=== PATIENT | male | born 1935 | race Hispanic/Latino ===

== ENCOUNTER 2020-07-07 09:12 | Inpatient (IN) | payer OTHER, MEDICARE ==
[~2020-07-07] VITALS: Ht 172.7 cm; Wt 77.2 kg
[2020-07-07] MEDS: 0.9%NACL 1000ML 1,000 ML IV SCH ×2 (02:55→13:04)
[~2020-07-07 09:12] MED LIST: FINA5TAB41 PO; MECL-226 PO; QUIN1TAB16 PO; SIMV-46 PO
[2020-07-07 09:37] LABS: BASOPHILS % (AUTO) 0.1 % (0.0-5.0); EOSINOPHILS % (AUTO) 0.7 % (0.0-8.0); HEMATOCRIT 39.3 % (42-54); LYMPHOCYTES % (AUTO) 4.2 % (21.0-51.0); MEAN CORPUSCULAR HEMOGLOBIN 30.6 pg (27.0-33.0); MEAN CORPUSCULAR HGB CONC 34.1 g/dL (32.0-36.0); MEAN CORPUSCULAR VOLUME 89.7 fL (79-99); MONOCYTES % (AUTO) 4.9 % (3.0-13.0); NEUTROPHILS % (AUTO) 89.2 % (40.0-77.0); PLATELET COUNT (AUTO) 161 K/uL (130-400); RED BLOOD CELL COUNT(AUTO) 4.38 MIL/uL (4.50-6.20); RED CELL DISTRIBUTION WIDTH 12.5 % (11.0-15.5); WHITE BLOOD COUNT (AUTO) 9.7 K/uL (4.8-10.8)
[2020-07-07] MEDS ORDERED: ONDANSETRON 4MG INJ ONE (09:37)
[2020-07-07] MEDS ORDERED: FAMOTIDINE 20MG VIAL IV ONE (09:38)
[2020-07-07] MEDS ORDERED: 0.9%NACL 1000ML 1,000 ML IV ONE ×2 (09:38→11:18)
[2020-07-07 09:56] LABS: BILIRUBIN,TOTAL 0.8 mg/dL (0.2-1.0); POTASSIUM 4.8 mmol/L (3.5-5.1); TOTAL PROTEIN, SERUM 7.5 g/dL (6.0-8.3)
[2020-07-07 10:07] LABS: B-TYPE NATRIURETIC PEPTIDE 13 pg/mL (0-100)
[2020-07-07] MEDS ORDERED: KCL 20 MEQ ERTAB PO PRN (10:45)
[2020-07-07] MEDS ORDERED: LIDOCAINE HCL-MPF 1% 2ML VIAL IV PRN (10:45)
[2020-07-07] MEDS ORDERED: DEXTROSE 50%-WATER 50 ML DISP.SYRIN IV PRN (10:45)
[2020-07-07] MEDS: PANTOPRAZOLE 40 MG TAB DR PO SCH (10:45)
[2020-07-07] MEDS ORDERED: POTASSIUM CHLORIDE 20MEQ/100ML 100 ML IV PRN (10:45)
[2020-07-07] MEDS ORDERED: POTASSIUM CHLORIDE 10% ELIXIR 20 MEQ/15 ML UDCUP PO PRN (10:45)
[2020-07-07] MEDS ORDERED: MAGNESIUM 2GM PREMIX 50ML 50 ML IV PRN (10:45)
[2020-07-07] MEDS: ENOXAPARIN SODIUM 40 MG/0.4 ML SYRINGE SQ SCH (10:45)
[2020-07-07] MEDS: DEXAMETHASONE SOD PHOSPHATE 4 MG/ML 1ML VIAL IVP SCH (10:45)
[2020-07-07] MEDS ORDERED: GLUCAGON 1MG KIT 1 MG ML IM PRN (10:45)
[2020-07-07] MEDS ORDERED: DEXAMETHASONE SOD PHOSPHATE 10MG/ML 1ML VIAL ONE (11:15)
[2020-07-07] MEDS ORDERED: ENOXAPARIN SODIUM 40 MG/0.4 ML SYRINGE SQ ONE (11:16)
[2020-07-07] MEDS ORDERED: PANTOPRAZOLE 40 MG/VIAL ONE (11:16)
[2020-07-07] MEDS: INSULIN HUMULIN R 100 UNIT/ML 3ML SQ SCH ×3 (11:30→20:22)
[2020-07-07] MEDS ORDERED: ONDANSETRON 4MG INJ IVP PRN (12:15)
[2020-07-07] MEDS ORDERED: ACETAMINOPHEN 325 MG TAB PO PRN (12:15)
[2020-07-07] MEDS ORDERED: FAMO40TA7 PO (13:36)
[2020-07-07] MEDS ORDERED: SIMV-46 PO (13:36)
[2020-07-07] MEDS ORDERED: DOXY100T2 PO (13:36)
[2020-07-07] MEDS ORDERED: LISI20TA24 PO (13:36)
[2020-07-07] MEDS ORDERED: FINA5TAB41 PO (13:36)
[2020-07-07 16:39] VITALS: BP 123/65
[2020-07-07 20:02] VITALS: BP 133/53
[2020-07-07 23:52] VITALS: BP 128/66
[2020-07-08 04:07] LABS: HEMATOCRIT 34.6 % (42-54); MEAN CORPUSCULAR HEMOGLOBIN 29.9 pg (27.0-33.0); MEAN CORPUSCULAR HGB CONC 33.2 g/dL (32.0-36.0); MEAN CORPUSCULAR VOLUME 90.1 fL (79-99); RED BLOOD CELL COUNT(AUTO) 3.84 MIL/uL (4.50-6.20); RED CELL DISTRIBUTION WIDTH 12.4 % (11.0-15.5); WHITE BLOOD COUNT (AUTO) 7.7 K/uL (4.8-10.8)
[2020-07-08 04:18] VITALS: BP 125/61
[2020-07-08 04:19] LABS: MAGNESIUM 2.3 mg/dL (1.80-2.40); POTASSIUM 5.1 mmol/L (3.5-5.1)
[2020-07-08] MEDS: INSULIN HUMULIN R 100 UNIT/ML 3ML SQ SCH ×4 (06:38→22:05)
[2020-07-08 08:29] VITALS: BP 167/75
[2020-07-08] MEDS: ENOXAPARIN SODIUM 40 MG/0.4 ML SYRINGE SQ SCH (08:54)
[2020-07-08] MEDS: PANTOPRAZOLE 40 MG TAB DR PO SCH (08:55)
[2020-07-08] MEDS: DEXAMETHASONE SOD PHOSPHATE 4 MG/ML 1ML VIAL IVP SCH (08:55)
[2020-07-08] MEDS: 0.9%NACL 1000ML 1,000 ML IV SCH ×4 (12:51→21:45)
[2020-07-08 13:10] VITALS: BP 136/67
[2020-07-08 16:15] VITALS: BP 113/65
[2020-07-08 19:00] VITALS: BP 130/63
[2020-07-08] MEDS: LISINOPRIL 20 MG TABLET PO SCH (21:48)
[2020-07-09] VITALS (7 sets, daily range): BP systolic 112–168; BP diastolic 59–69
[2020-07-09 05:33] LABS: HEMATOCRIT 34.2 % (42-54); MEAN CORPUSCULAR HEMOGLOBIN 30.5 pg (27.0-33.0); MEAN CORPUSCULAR HGB CONC 34.8 g/dL (32.0-36.0); MEAN CORPUSCULAR VOLUME 87.7 fL (79-99); RED BLOOD CELL COUNT(AUTO) 3.9 MIL/uL (4.50-6.20); RED CELL DISTRIBUTION WIDTH 12.3 % (11.0-15.5)
[2020-07-09 05:38] LABS: CREATININE 1.1 mg/dL (0.5-1.5); MAGNESIUM 1.9 mg/dL (1.80-2.40); POTASSIUM 4.9 mmol/L (3.5-5.1)
[2020-07-09] MEDS: INSULIN HUMULIN R 100 UNIT/ML 3ML SQ SCH ×4 (07:30→20:28)
[2020-07-09] MEDS: SIMVASTATIN 20 MG TABLET PO SCH (09:06)
[2020-07-09] MEDS: LISINOPRIL 20 MG TABLET PO SCH ×2 (09:06→21:46)
[2020-07-09] MEDS: SODIUM CHLORIDE 1,000 MG TAB PO SCH ×3 (09:07→21:46)
[2020-07-09] MEDS: FINASTERIDE 5 MG TABLET PO SCH (09:07)
[2020-07-09] MEDS: PANTOPRAZOLE 40 MG TAB DR PO SCH (09:07)
[2020-07-09] MEDS: DEXAMETHASONE SOD PHOSPHATE 4 MG/ML 1ML VIAL IVP SCH (09:07)
[2020-07-09] MEDS: ENOXAPARIN SODIUM 40 MG/0.4 ML SYRINGE SQ SCH (09:08)
[2020-07-09] MEDS: 0.9%NACL 1000ML 1,000 ML IV SCH (09:11)
[2020-07-10] MEDS: 0.9%NACL 1000ML 1,000 ML IV SCH ×2 (01:43→17:13)
[2020-07-10 04:37] VITALS: BP 136/64
[2020-07-10] MEDS: INSULIN HUMULIN R 100 UNIT/ML 3ML SQ SCH ×4 (06:34→20:28)
[2020-07-10 06:52] LABS: POTASSIUM 4.5 mmol/L (3.5-5.1)
[2020-07-10 08:00] VITALS: BP 146/68
[2020-07-10] MEDS: LISINOPRIL 20 MG TABLET PO SCH ×2 (08:46→20:20)
[2020-07-10] MEDS: SODIUM CHLORIDE 1,000 MG TAB PO SCH ×4 (08:53→20:20)
[2020-07-10] MEDS: DEXAMETHASONE SOD PHOSPHATE 4 MG/ML 1ML VIAL IVP SCH (08:53)
[2020-07-10] MEDS: SIMVASTATIN 20 MG TABLET PO SCH (08:53)
[2020-07-10] MEDS: PANTOPRAZOLE 40 MG TAB DR PO SCH (08:53)
[2020-07-10] MEDS: FINASTERIDE 5 MG TABLET PO SCH (08:53)
[2020-07-10] MEDS: ENOXAPARIN SODIUM 40 MG/0.4 ML SYRINGE SQ SCH (08:54)
[2020-07-10 12:03] VITALS: BP 134/60
[2020-07-10 16:20] VITALS: BP 109/73
[2020-07-10 19:00] VITALS: BP 146/65
[2020-07-11] VITALS: BP 153/75
[2020-07-11 04:00] VITALS: BP 156/71
[2020-07-11 05:11] LABS: CREATININE 0.9 mg/dL (0.5-1.5); POTASSIUM 4.8 mmol/L (3.5-5.1)
[2020-07-11] MEDS: 0.9%NACL 1000ML 1,000 ML IV SCH (06:12)
[2020-07-11] MEDS: INSULIN HUMULIN R 100 UNIT/ML 3ML SQ SCH ×4 (06:42→21:00)
[2020-07-11 08:33] VITALS: BP 124/61
[2020-07-11] MEDS: FINASTERIDE 5 MG TABLET PO SCH (08:50)
[2020-07-11] MEDS: SODIUM CHLORIDE 1,000 MG TAB PO SCH ×4 (08:51→20:03)
[2020-07-11] MEDS: PANTOPRAZOLE 40 MG TAB DR PO SCH (08:51)
[2020-07-11] MEDS: SIMVASTATIN 20 MG TABLET PO SCH (08:51)
[2020-07-11] MEDS: LISINOPRIL 20 MG TABLET PO SCH ×2 (08:51→20:11)
[2020-07-11] MEDS: ENOXAPARIN SODIUM 40 MG/0.4 ML SYRINGE SQ SCH (08:52)
[2020-07-11 12:34] VITALS: BP 149/70
[2020-07-11 17:25] VITALS: BP 143/76
[2020-07-11 18:34] LABS: APPEARANCE,URINE Clear (CLEAR); BILIRUBIN,URINE Negative (NEGATIVE); CHLORIDE,URINE RANDOM 146 mmol/L (110-250); COLOR,URINE Yellow (YELLOW); GLUCOSE, URINE (UA) Negative (NEGATIVE); KETONES,URINE Negative (NEGATIVE); LEUKOCYTE ESTERASE ,URINE Negative (NEGATIVE); NITRATE,URINE Negative (NEGATIVE); OCCULT BLOOD,URINE Negative (NEGATIVE); PH,URINE 6.5 (5.0-8.0); POTASSIUM,URINE RANDOM < 9 mmol/L (25-125); PROTEIN,URINE Negative (NEGATIVE); SODIUM,URINE RANDOM 136 mmol/l (40-220)
[2020-07-11 19:00] VITALS: BP 149/74
[2020-07-12] VITALS: BP 149/71
[2020-07-12] MEDS: 0.9%NACL 1000ML 1,000 ML IV SCH ×2 (00:17→13:26)
[2020-07-12 04:26] VITALS: BP 154/78
[2020-07-12 05:33] LABS: CREATININE 1.1 mg/dL (0.5-1.5); MAGNESIUM 1.8 mg/dL (1.80-2.40); POTASSIUM 4.4 mmol/L (3.5-5.1); THYROID STIMULATING HORMONE 3.08 uIU/mL (0.36-3.74)
[2020-07-12] MEDS: INSULIN HUMULIN R 100 UNIT/ML 3ML SQ SCH ×4 (06:56→21:00)
[2020-07-12] MEDS: LISINOPRIL 20 MG TABLET PO SCH ×2 (08:53→19:52)
[2020-07-12] MEDS: SIMVASTATIN 20 MG TABLET PO SCH (08:53)
[2020-07-12] MEDS: PANTOPRAZOLE 40 MG TAB DR PO SCH (08:53)
[2020-07-12] MEDS: FINASTERIDE 5 MG TABLET PO SCH (08:53)
[2020-07-12] MEDS: SODIUM CHLORIDE 1,000 MG TAB PO SCH ×4 (08:53→19:52)
[2020-07-12] MEDS: ENOXAPARIN SODIUM 40 MG/0.4 ML SYRINGE SQ SCH (08:56)
[2020-07-12 09:21] VITALS: BP 132/67
[2020-07-12 12:00] VITALS: BP 155/79
[2020-07-12 16:00] VITALS: BP 148/72
[2020-07-12 19:00] VITALS: BP 135/72
[2020-07-13] VITALS: BP 137/65
[2020-07-13 04:00] VITALS: BP 128/56
[2020-07-13 05:52] LABS: CREATININE 0.9 mg/dL (0.5-1.5); POTASSIUM 4.2 mmol/L (3.5-5.1)
[2020-07-13] MEDS: INSULIN HUMULIN R 100 UNIT/ML 3ML SQ SCH ×3 (07:04→16:30)
[2020-07-13 08:00] VITALS: BP 131/59
[2020-07-13] MEDS ORDERED: FLUDROCORTISONE ACETATE 0.1 MG TABLET PO SCH (09:00)
[2020-07-13] MEDS: LISINOPRIL 20 MG TABLET PO SCH (09:34)
[2020-07-13] MEDS: SIMVASTATIN 20 MG TABLET PO SCH (09:34)
[2020-07-13] MEDS: FINASTERIDE 5 MG TABLET PO SCH (09:34)
[2020-07-13] MEDS: SODIUM CHLORIDE 1,000 MG TAB PO SCH ×3 (09:35→17:26)
[2020-07-13] MEDS: PANTOPRAZOLE 40 MG TAB DR PO SCH (09:35)
[2020-07-13] MEDS: 0.9%NACL 1000ML 1,000 ML IV SCH (09:36)
[2020-07-13] MEDS: ENOXAPARIN SODIUM 40 MG/0.4 ML SYRINGE SQ SCH (09:36)
[2020-07-13] MEDS ORDERED: FLUD.1 PO (10:54)
[2020-07-13 12:00] VITALS: BP 100/60
[2020-07-13 17:27] VITALS: BP 136/67
== END 2020-07-13 18:55 | disposition home or self-care (01) | DRG 177 ==
LOC: EDH 09:12 → OBSVTOIN 10:41 → EDHIP 10:41 → 4AH 11:44 → 2AH 07-13 04:25
PROVIDERS: ADMIT Internal Medicine; ATTEND Internal Medicine
DX: U07.1 COVID-19 (principal); J15.9 Unspecified bacterial pneumonia; J12.9 Viral pneumonia, unspecified; E87.1 Hypo-osmolality and hyponatremia; E86.0 Dehydration; N40.0 Benign prostatic hyperplasia without lower urinary tract symptoms; I10 Essential (primary) hypertension; E78.5 Hyperlipidemia, unspecified; Z79.899 Other long term (current) drug therapy
CPT/HCPCS: 36415; 71045; 71250; 80048; 80051; 80053; 81003; 82533; 82607; 82948; 83690; 83735; 83880; 84145; 84443; 84484; 85025; 85027; 85378; 87040; 87426; 93005; C9113; G0378; J1100; J1650; J1815; J2405; J3475; J3490; J7030; U0003

== ENCOUNTER → 2020-08-24 | Outpatient (CLI) | payer MEDICARE ==
[~2020-08-24] MED LIST changes: +FAMO40TA7 PO; +FLUD.1 PO; +LISI20TA24 PO; -MECL-226 PO; -QUIN1TAB16 PO
== END | disposition home or self-care (01) ==
LOC: OIH 09:20
PROVIDERS: ATTEND Internal Medicine
DX: S43.429A Sprain of unspecified rotator cuff capsule, initial encounter (principal); M25.511 Pain in right shoulder; X58.XXXA Exposure to other specified factors, initial encounter; Y93.89 Activity, other specified; Y92.89 Other specified places as the place of occurrence of the external cause; Y99.8 Other external cause status
CPT/HCPCS: 73030

== ENCOUNTER → 2022-07-06 | Outpatient (CLI) | payer MEDICARE ==
[~2022-07-06] MED LIST changes: -FAMO40TA7 PO; -FLUD.1 PO
== END | disposition home or self-care (01) ==
LOC: RAH 12:58
PROVIDERS: ATTEND Internal Medicine
DX: I82.611 Acute embolism and thrombosis of superficial veins of right upper extremity (principal); L03.113 Cellulitis of right upper limb
CPT/HCPCS: 93971

== ENCOUNTER → 2022-11-22 | Outpatient (CLI) | payer OTHER, MEDICARE ==
[2022-11-22 12:33] LABS: ALBUMIN 3.9 g/dL (3.5-5.0); POTASSIUM 4.5 mmol/L (3.5-5.1); TOTAL PROTEIN, SERUM 7.2 g/dL (6.0-8.3)
== END | disposition home or self-care (01) ==
LOC: LAB 08:15
PROVIDERS: ATTEND Internal Medicine Cardiovascular Disease
DX: I10 Essential (primary) hypertension (principal); E78.00 Pure hypercholesterolemia, unspecified
CPT/HCPCS: 36415; 80053; 80061

== ENCOUNTER 2023-04-25 10:24 | Emergency (ER) | payer OTHER, MEDICARE ==
[~2023-04-25] VITALS: Ht 172.7 cm; Wt 75.3 kg
[2023-04-25 11:08] VITALS: BP 140/69; PULSE 85; RESP 18; O2SAT 95
[2023-04-25 11:15] LABS: CREATININE 1.1 mg/dL (0.5-1.5); POTASSIUM 4.4 mmol/L (3.5-5.1)
[2023-04-25 11:16] LABS: HEMATOCRIT 38.6 % (42-54); MEAN CORPUSCULAR HGB CONC 33.7 g/dL (32.0-36.0); MEAN CORPUSCULAR VOLUME 91.9 fL (79-99); RED BLOOD CELL COUNT(AUTO) 4.2 MIL/uL (4.50-6.20); RED CELL DISTRIBUTION WIDTH 13.2 % (11.0-15.5); WHITE BLOOD COUNT (AUTO) 6.4 K/uL (4.8-10.8)
[2023-04-25 11:20] LABS: ALBUMIN 4.1 g/dL (3.5-5.0); BILIRUBIN,TOTAL 0.9 mg/dL (0.2-1.0); TOTAL PROTEIN, SERUM 7.7 g/dL (6.0-8.3)
[2023-04-25 13:17] LABS: COVID19 (SARS ANTIGEN RAPID) PRESUMPTIVE NEGATIVE (NEGATIVE); INFLUENZA TYPE A Negative For Type A (NEGATIVE); INFLUENZA TYPE B Negative For Type B (NEGATIVE)
[2023-04-25 13:52] LABS: APPEARANCE,URINE CLEAR (CLEAR); BILIRUBIN,URINE NEGATIVE (NEGATIVE); COLOR,URINE LIGHT-YELLOW (YELLOW); GLUCOSE, URINE (UA) >=1000 mg/dL (NEGATIVE); KETONES,URINE 10 mg/dL (NEGATIVE); LEUKOCYTE ESTERASE ,URINE NEGATIVE Leu/uL (NEGATIVE); NITRATE,URINE NEGATIVE (NEGATIVE); OCCULT BLOOD,URINE NEGATIVE (NEGATIVE); PH,URINE 5.5 (5.0-8.0); PROTEIN,URINE NEGATIVE (NEGATIVE); UROBILINOGEN,URINE 0.2 mg/dL (0.2-1.0)
[2023-04-25 13:54] LABS: ADD UA MICROSCOPIC YES
[2023-04-25 13:55] LABS: MUCUS,URINE RARE LPF (None Seen); RBC,URINE 0-1 /HPF (0-1); WBC,URINE 0-1 /HPF (0-1)
[2023-04-25] MEDS ORDERED: ONDA22I SL (14:20)
== END 2023-04-25 14:41 | disposition home or self-care (01) ==
LOC: EDH 10:24
DX: R55 Syncope and collapse (principal); R11.2 Nausea with vomiting, unspecified; R53.1 Weakness; I10 Essential (primary) hypertension; E78.00 Pure hypercholesterolemia, unspecified; Z20.822 Contact with and (suspected) exposure to COVID-19; Z79.899 Other long term (current) drug therapy
CPT/HCPCS: 36415; 80053; 81001; 84484; 85027; 87426; 87804; 93005

== ENCOUNTER 2024-02-12 12:26 | Emergency (ER) | payer OTHER, MEDICARE ==
[~2024-02-12] VITALS: Ht 172.7 cm; Wt 64.9 kg
[~2024-02-12 12:26] MED LIST changes: +BICA50TA49 PO; +DAPA5TAB PO; +DOCU-116 PO; +TRAM50TA4 PO
[2024-02-12 12:33] VITALS: BP 190/81; PULSE 88; RESP 18; TEMP 98.2
[2024-02-12] MEDS ORDERED: ACET-2743 PO (14:30)
== END 2024-02-12 14:41 | disposition home or self-care (01) ==
LOC: EDH 12:26
DX: S01.01XA Laceration without foreign body of scalp, initial encounter (principal); E78.00 Pure hypercholesterolemia, unspecified; I10 Essential (primary) hypertension; Z79.899 Other long term (current) drug therapy; Z79.84 Long term (current) use of oral hypoglycemic drugs; W01.0XXA Fall on same level from slipping, tripping and stumbling without subsequent striking against object, initial encounter; Y93.89 Activity, other specified; Y92.89 Other specified places as the place of occurrence of the external cause; Y99.8 Other external cause status
CPT/HCPCS: 12002; 70450; 72125